=== PATIENT | male | born 1950 | race Native Hawaiian/Other Pacific Islander ===

== ENCOUNTER 2016-03-29 03:48 | Emergency (ER) | payer MEDICARE, OTHER ==
[~2016-03-29] VITALS: Ht 185.4 cm; Wt 127.3 kg
[2016-03-29 03:53] VITALS: BP 235/121; RESP 18; O2SAT 96
--- NOTE | 2016-03-29 04:48 | ED.REPORT ---
HPI-URI / Cough / Cold Date of Service Mar 29, 2016 ED Provider: Zackery Ambrocio MD The patient is a 65 year old male who presents to the ED complaining of nasal congestion and productive cough with green sputum for the last two weeks. He states that he has tried rinsing his sinuses with saline which helps temporarily but his symptoms return. He presents with his who is an everyday smoker and has similar symptoms. He is a current some-day smoker ( cigars). He denies any other symptoms at this time. Nursing Notes Stated Complaint: COLD/SINUS Chief Complaint: ENT & Mouth Nursing Notes Reviewed: Yes Allergies: Coded Allergies: No Known Allergies (Unverified Allergy, Unknown, 03/16/14) General Time Seen by MD: 04:36 Chief Complaint Cough, productive... (Green), Nasal congestion Hx Obtained From: Patient, Spouse Arrived By: Walk-in Onset Occurred: More than a week ago... (2 weeks) Symptom Duration: Since onset Severity: Current: No pain currently Severity: Maximum: No pain Context: Immunization Status General: All up to date Recent Healthcare: No recent doctor visit, No recent hospitalization Similar Sx Previous: No Past Medical History Past Medical History High cholesterol Reports: Diabetes mellitus, Hypertension Past Surgical History Knee surgery Smoking History Current Some Day Smoker Social History Alcohol Use: "Social" Drug Use: Denies drug use Other Social History: Occupation Retired from [employer] Ambulatory Status Independent Review of Systems Constitutional: Denies: Fever Ears / Nose / Throat: Reports: Nasal congestion, Denies: Ear drainage left, Ear drainage right, Earache left, Earache right, Nose bleeding Respiratory: Reports: Prod cough, green GI: Denies: Nausea, Vomiting Complete sys rev & neg: except as marked. Physical Exam Initial Vital Signs Vital Signs (First) Date Time Temp Pulse Resp B/P Pulse Ox O2 Delivery O2 Flow Rate FiO2 03/29/16 03:53 36.9 80 18 235/121 96 Initial VS: Reviewed, Vital signs abnormal Head / Eyes: Atraumatic, Normocephalic, PERRL Neck: Supple, Non-tender, Full range of motion Cardiovascular: Regular rate & rhythm, Heart sounds normal, Intact distal pulses Abdomen / GI: Soft, Non-tender, No guarding, No rebound, No distention Back: No CVA tenderness Extremities: Vascular intact, Neuro intact, No swelling, No tenderness Skin: Warm, Dry, No cyanosis Neurologic: Alert, Oriented, Nonfocal Psychiatric: Mood/affect normal, Behavior normal, Normal thought content General/Constitutional: Awake, Alert, No acute distress, Well appearing ENT: Atraumatic, Airway patent, Mucous membranes moist, Tympanic membs NL, Ext aud canal NL Significant congestion with green sputum Respiratory / Chest: Atraumatic, Breath sounds NL, Breath sounds = bilat Intermittent wet cough Re-Eval/Medical Decision Med Decision/Clinical Course 65-year-old male with resolving upper respiratory infection who then developed increasing cough and increasing sinus congestion with green nasal discharge and sputum and increasing cough. He clinically does not have pneumonia. Despite wheezing Albuterol nebulizer did not help at all. He was given benzonatate and azithromycin. He was also noted to have high blood pressure. He was given a blood pressure recording card and encourage to monitor it. He will follow up with his primary doctor. Source of Hx: Old records Re-Evaluation/Progress : Time of Eval: 04:50 Re-Evaluation/Progress Note: Met with the patient and his . Upon reviewing history and symptoms, discussed diagnosis and plan for discharge. The patient understands and agrees to the plan. All questions addressed. Counseled Regarding: Diagnosis, Need for follow-up, When/why to return to ED Discharge & Departure Impression: Primary Impression: Bronchitis Additional Impressions: Sinusitis Sinusitis location: unspecified location Chronicity: subacute Qualified Code: J01.90 - Acute sinusitis, unspecified Smoker Disposition: Home Discharge Condition All VS Reviewed: Yes Condition: Stable Patient Instructions: Acute Bronchitis (ED) Additional Instructions: No evidence of pneumonia or spasm. Azithromycin 250 mg, 2 now and then one daily for 4 more days, #6 dispensed. Afrin nasal spray 2 sprays each nostril for 3 days. Stop smoking. Referrals: NOPCP (PCP) Scribe Attestation Portions of this note were transcribed by Sienna Whalen. I, Dr. Ambrocio, personally performed the history, physical exam, and medical decision-making; I reviewed and confirmed the accuracy of the information in the transcribed note. Signed by: Debra Rendon, 03/29/16 05:05. Zackery Ambrocio MD Mar 29, 2016 04:48 SIENNA WHALEN Mar 29, 2016 05:01
[2016-03-29] MEDS: Albuterol-Ipratropium 3 mL Inhalation Solution NEB ONE ×2 (05:19→06:01)
[2016-03-29] MEDS ORDERED: _Azithromycin 250 mg Tablet PO SCH (05:20)
[2016-03-29 06:17] VITALS: BP_SYST 135; BP_SYST 181; BP_DIAS 102; BP_DIAS 86; PULSE 69; RESP 16; O2SAT 96
== END 2016-03-29 06:37 | disposition home or self-care (01) ==
LOC: SED 03:48
DX: J40 Bronchitis, not specified as acute or chronic (principal); J01.90 Acute sinusitis, unspecified; F17.200 Nicotine dependence, unspecified, uncomplicated; E11.9 Type 2 diabetes mellitus without complications; I10 Essential (primary) hypertension
CPT/HCPCS: 99283; J7620